=== PATIENT | female | born 1965 | race Caucasian/White ===

== ENCOUNTER 2017-01-06 15:18 | Inpatient (IN) | payer BC ==
[~2017-01-06] VITALS: Ht 167.6 cm; Wt 59.9 kg
--- NOTE | ~2017-01-06 | HP ---
History And Physical [address] [place]. [address] NAME: SABINA DAS : 65 STATUS : ADM IN [facility]#: [id number] AGE: 51 ADM/REG DATE : 01/06/17 MR#: [id number] REPORT SERV DATE: 01/07/17 DICTATED BY: DANIELLE ARANGO DATE: 01/06/17 REPORT STATUS : Draft TRANSCRIBED BY: MODBright DATE: 01/06/17 DATE OF ADMISSION: 01/06/2017 POINT OF ENTRY: [facility] Emergency Department. PRIMARY CARE PHYSICIAN: None at this time. CHIEF COMPLAINT: Fall with right hip pain. HISTORY OF PRESENT ILLNESS: Ms Das is a 51-year-old female with no significant previous medical history other than reported borderline osteoporosis and history of avascular necrosis of the hip, who presents to the emergency department status post mechanical fall with resulting right hip pain. The patient states that she fell a few years ago and broke her left hip and has since had two surgeries, a second one required by avascular necrosis. She also does report a history of some "borderline or early osteoporosis." The patient also states she is very clumsy and has a tendency to fall quite a bit. The patient states she was in her usual state of health today until she suffered mechanical fall at her boyfriend's office. She denies any loss of consciousness. Denies any head trauma. She cannot tell me the reason for her fall. She denies any preceding troubles with fevers, night sweats, chills, chest pain, palpitations, shortness of breath, cough, sputum production, abdominal pain, nausea, vomiting, diarrhea, constipation, melena, hematochezia, hemoptysis, or hematemesis. REVIEW OF SYSTEMS: Comprehensive review of system otherwise negative unless listed in history of present illness. PREVIOUS MEDICAL HISTORY: 1. "Borderline osteoporosis.". 2. Avascular necrosis of the left hip status post hip replacement. SURGICAL HISTORY: 1. Left total hip and then revision for avascular necrosis. 2. Left hand surgery x2. ALLERGIES: AMOXICILLIN CAUSES RASH AND HIVES. HOME MEDICATIONS: 1. Tylenol 1000 mg t.i.d. 2. Os-Akira with vitamin D 500 mg b.i.d. 3. Zyrtec 10 mg daily. History And Physical [address] [place]. [address] NAME: SABINA DAS : 65 STATUS : ADM IN [facility]#: [id number] AGE: 51 ADM/REG DATE : 01/06/17 MR#: [id number] REPORT SERV DATE: 01/07/17 DICTATED BY: DANIELLE ARANGO DATE: 01/06/17 REPORT STATUS : Draft TRANSCRIBED BY: DAVE DATE: 01/06/17 SOCIAL HISTORY: She denies any tobacco, alcohol, or illicits. She works in ER registration at . FAMILY MEDICAL HISTORY: Mother with hypertension and hyperlipidemia. Father with diabetes and coronary artery disease. Siblings with Crohn disease, fibromyalgia, and hypertension. LABS AND IMAGIN. White count is 7.0, hemoglobin is 14.7, hematocrit is 43.7, platelet count is 143, and INR 1.1. 2. Sodium is 142, potassium 3.7, chloride 108, carbon dioxide 26, BUN 15, creatinine 0.68, glucose is 105, calcium is 8.8, protein is 7.3, albumin is 3.9, bilirubin is 0.4, ALT is 55, AST 43, and alkaline phosphatase is 76. 3. Chest x-ray per my review shows no acute cardiopulmonary abnormality. 4. EKG per my review shows normal sinus rhythm. No evidence of any acute ischemia or infarction. 5. Plain films of the hip and pelvis show a right intertrochanteric hip fracture that is mildly displaced. PHYSICAL EXAMINATION: VITAL SIGNS: Temperature is 98.4 degrees Fahrenheit, pulse is 67, respirations 16, saturating 98% on room air, and blood pressure 130/78. GENERAL: The patient is awake and alert, in no acute distress. Resting comfortably in bed. She is a well-developed, well-nourished, female. HEENT: Atraumatic and normocephalic. Moist mucous membranes. Pupils are equal, round, reactive to light and accommodation. Extraocular eye movements intact. No scleral icterus. NECK: No jugular venous distention. No carotid bruits. CARDIAC: Regular rate and rhythm. No murmurs, rubs, or gallops. Normal S1, S2. LUNGS: Clear to auscultation bilaterally. No wheezes, rhonchi, or crackles. ABDOMEN: Soft, nontender, and nondistended with good bowel sounds. No rebound, guarding, or rigidity. EXTREMITIES: Warm and perfused. No cyanosis, clubbing or edema. Right lower extremity is neurovascularly intact distally. SKIN: Warm and dry. PSYCH: Affect appropriate. NEURO: Alert and oriented x3. Cranial nerves 2 through 12 grossly intact. Speech is normal. Gait not assessed. ASSESSMENT AND PLAN: Ms Das is a 51-year-old female suffered a mechanical fall today at work with resulting right intertrochanteric hip fracture. PROBLEM LIST: 1. Right intertrochanteric hip fracture, displaced. 2. Fall. 3. History of osteoporosis. PLAN: 1. Right intertrochanteric hip fracture. We will admit the patient to the hospitalist History And Physical [address] [address] NAME: SABINA DAS : 65 STATUS : ADM IN [facility]#: [id number] AGE: 51 ADM/REG DATE : 01/06/17 MR#: [id number] REPORT SERV DATE: 01/07/17 DICTATED BY: DANIELLE ARANGO DATE: 01/06/17 REPORT STATUS : Draft TRANSCRIBED BY: DAVE DATE: 01/06/17 Service. The patient requests that she be seen by Dr. Curtis, who we will consult. We will place the patient on bed rest. Hdez catheter insertion, complete preoperative evaluation with urinalysis, provide supportive care with IV fluids, antiemetics, as well as pain control. 2. DVT prophylaxis. Heparin subcu. CODE STATUS: The patient wished to be full code. GILBERTO/DAVE Danielle Arango MD / [id number] CC: Bryson Borrero M.D.
--- NOTE | ~2017-01-06 | OP ---
Record Of Operation [facility] [address] [place]. [address] NAME: SABINA DAS : 65 STATUS : ADM IN [facility]#: [id number] AGE: 51 ADM/REG DATE : 01/06/17 MR#: [id number] REPORT SERV DATE: 01/08/17 DICTATED BY: SAUL CURTIS DATE: 01/08/17 REPORT STATUS : Draft TRANSCRIBED BY: MODBright DATE: 01/08/17 DATE OF PROCEDURE: 01/08/2017 PREOPERATIVE DIAGNOSIS: Displaced right femoral neck fracture. POSTOPERATIVE DIAGNOSIS: Displaced right femoral neck fracture. PROCEDURE: Right total hip arthroplasty. AIR DEFENCE OFFICER: Corby Holcomb. ANESTHESIA: Spinal with MAC. ESTIMATED BLOOD LOSS: 300 mL. COMPLICATIONS: None. DRAINS: ConstaVac x1. IMPLANTS: DePuy [place] 48 mm outer diameter cup with a 32 mm inner diameter, +4 lateralized polyethylene liner. The femoral component was size 4 high offset Rough And Ready stem with a 32 mm +5 head and neck segment. INDICATIONS FOR SURGERY: Ms Das is a 51-year-old female, who sustained the above-mentioned fracture in a fall. It was recommended she undergo a total hip arthroplasty. Risks of the procedure as detailed in the orthopedic consult, and operative consent were discussed with her preoperatively. She fully understood and has requested to proceed. DESCRIPTION OF PROCEDURE: The patient was brought to the operating room and after adequate induction of anesthesia, was positioned in the lateral decubitus position using the hip automatic transmission mechanic positioners. All appropriate pressure points were padded and axillary roll was placed. The appropriate operative site was identified and confirmed by both the surgeon and the operating room staff in time out. The hip was then prepped and draped in the usual sterile fashion. A posterior lateral approach to the hip was performed. The skin and subcutaneous tissues were incised sharply using a #10 blade. Electrocautery was used as needed to maintain hemostasis. The fascia amber and fascia over the gluteus karan were divided in line with the incision. The fibers of the gluteus karan were split bluntly. The sciatic nerve was identified and carefully protected throughout the remainder of the case. The Charnley retractor was then placed. The hip was placed in internal rotation and the superior border of the piriformis tendon identified. A full thickness capsulotomy was begun at the superior border of the piriformis tendon and extended anteriorly/inferiorly using an inside/out technique. A portion of the short external rotators were taken down in the capsular exposure. Leg length measurements were then taken. The hip was then dislocated Record Of Operation [facility] [address] [place]. [address] NAME: SABINA DAS : 65 STATUS : ADM IN PAT#: [id number] AGE: 51 ADM/REG DATE : 01/06/17 MR#: [id number] REPORT SERV DATE: 01/08/17 DICTATED BY: SAUL CURTIS DATE: 01/08/17 REPORT STATUS : Draft TRANSCRIBED BY: DAVE DATE: 01/08/17 posteriorly. The femoral neck was then marked and resected at the predetermined level from templating using an oscillating saw. Attention was then turned to the femur and the medial aspect of the greater trochanter was debrided of all cortical bone and soft tissue. The intramedullary canal was opened with a triple reamer. The femur was then sequentially reamed to the appropriate size Rough And Ready stem. The femur was then sequentially broached, once again to the appropriately sized implant. The femoral neck resection was slightly revised using a calcar mill to bring it to the level of the femoral broach. The broach was then removed. Attention was then turned to the acetabulum and the acetabulum was debrided of all labral remnants, osteophytes, and the medial fibrofatty tissue was debrided and the true medial wall of the acetabulum identified. The acetabulum was then sequentially reamed from a size 43 mm hemispherical reamer to a reamer 1 mm smaller than the final component. At this level there was circumferential bleeding of subchondral bony surface. Any subchondral cysts were curetted. The true acetabular cup was then impacted into the acetabulum and a trial liner placed. A trial reduction was then performed. The leg lengths were felt to be equal. The hip was stable at its limited extension and external rotation and to 90 degrees of flexion and 80 degrees of internal rotation. The hip was also stable in the position of sleep. At this point all trial components were removed and the acetabular hole library assistant placed in the acetabular shell. The true acetabular liner was then impacted in the clean acetabular shell. The femoral canal was then copiously irrigated with normal saline and suctioned dry. The true femoral stem was then impacted into the femur to an identical depth and identical anteversion of the trial component. A trial reduction was once again performed to assure that there was no change in leg length or stability. The true femoral head ball was then impacted into the clean femoral taper. The acetabulum was inspected to be sure it was free of all foreign matter and the hip reduced. The wound was copiously irrigated with pulsatile lavage and normal saline. The capsule was repaired using interrupted #1 Vicryl suture in [id number] fashion. The short external rotators were repaired using #5 Ethibond in horizontal mattress fashion. Drain placed deep to the fascia. The fascia was closed with interrupted #5 Ethibond sutures in [id number] fashion. The subcutaneous tissues approximated with interrupted 2-0 Vicryl suture and the skin stapled. Sterile dressing applied. The patient awakened and taken to the recovery room in stable condition. POSTOP PLAN: The patient is to be mobilized weightbearing as tolerated with physical therapy. Posterior hip dislocation precautions. The patient is to be on Coumadin and mechanical deep venous thrombosis prophylaxis. MARIAN/DAVE Record Of [address] [address] NAME: SABINA DAS : 65 STATUS : ADM IN [facility]#: [id number] AGE: 51 ADM/REG DATE : 01/06/17 MR#: [id number] REPORT SERV DATE: 01/08/17 DICTATED BY: SAUL CURTIS DATE: 01/08/17 REPORT STATUS : Draft TRANSCRIBED BY: DAVE DATE: 01/08/17 Saul Curtis M.D. / [id number] CC: Maty Sepulveda M.D.
--- NOTE | ~2017-01-06 | DS ---
Discharge Summary [address] [place]. [address] NAME: SABINA DAS : 65 STATUS : DIS IN PAT#: [id number] AGE: 51 ADM/REG DATE : 01/06/17 MR#: [id number] REPORT SERV DATE: 01/10/17 DICTATED BY: Kristel CARLIN DATE: 01/09/17 REPORT STATUS : Draft TRANSCRIBED BY: MODL DATE: 01/09/17 ADMISSION DATE: 01/06/2017 DISCHARGE DATE: 01/09/2017 The patient was admitted to the Hospitalist Service. CONSULTANTS: Dr. Saul Curtis, orthopedics. DISCHARGE DIAGNOSES: 1. Fall with right hip pain and right femoral neck fracture. 2. Status post right total hip arthroplasty. 3. Osteoporosis. 4. Seasonal allergies. 5. Postop nausea, resolved. PROCEDURES: On 01/08/2017, right total hip arthroplasty. IMAGING AND DIAGNOSTICS: 1. 01/06/2017, a portable chest x-ray, no acute process. Lungs are clear. 2. Hip two-view with a pelvis x-ray on 01/06/2017, showed an acute right femoral neck fracture. LABORATORY STUDIES: 1. Discharge labs on 01/09/2017: CBC revealed a white count of 6.8, hemoglobin 11.4, hematocrit 33.8, platelets 138,000. 2. PT 14.1, INR 1.1. 3. Basic metabolic panel revealed a sodium of 141, potassium 4.0, chloride 105, CO2 of 31, BUN 6, creatinine 0.5, glucose 103, calcium 8.6, and magnesium 2.1. HISTORY OF PRESENT ILLNESS: For complete history, please refer to admission H and P by Dr. Todd Belcher. Briefly, Ms. Das is a pleasant 51-year-old female with no significant past medical history other than reported borderline osteoporosis, who presented to the emergency room after falling at home with resulting right hip pain. In the emergency room, she was noted to have an acute right femoral neck fracture. She was admitted to the Hospitalist Service for further evaluation and treatment. HOSPITAL COURSE: The patient was admitted to the Med/Surg telemetry floor 3[facility], Orthopedic Unit and a consult was placed to Dr. Curtis for the patient's right hip fracture. Dr. Curtis saw her in consultation on 01/07/2017. The patient was placed on bed rest and made n.p.o. after midnight. She was given DVT prophylaxis, IV fluids p.r.n., antiemetics, and p.r.n. pain medications. On 01/07/2017, she was allowed to eat and made n.p.o. after midnight for surgery on 08/01/[address] Curtis. As above, she had the procedure on 01/08/2017. I saw her for the first time post right total hip arthroplasty. She complained of right hip pain mainly with movement and some nausea. Otherwise, no symptoms. Her vital signs were stable. I saw the patient again on the morning of 01/09/2017. She was sitting up in a chair. Her nausea had improved. She was eating solid Discharge Summary [address] [place]. [address] NAME: SABINA DAS : 65 STATUS : DIS IN PAT#: [id number] AGE: 51 ADM/REG DATE : 01/06/17 MR#: [id number] REPORT SERV DATE: 01/10/17 DICTATED BY: Kristel CARLIN DATE: 01/09/17 REPORT STATUS : Draft TRANSCRIBED BY: DAVE DATE: 01/09/17 foods and ambulatory with physical therapy. She had no other complaints. On the afternoon of 01/09/2017, she was able to pass physical therapy and per the Orthopedic Service, she was okay to discharge home. I saw her again late afternoon on 01/09/2017, she was sitting up in a chair, dressed, in no acute distress. She reported that her nausea had resolved. She was eating and drinking without difficulty. She was able to maneuver steps with physical therapist and overall doing well. Therefore, it was felt that she was able to discharge home safely and follow up with outpatient PT starting next week. Her vital signs again were stable. Her pain was controlled with oral medications. Her lungs were clear to auscultation bilaterally. CV, regular rate and rhythm. No murmurs, rubs, gallops. Abdomen is soft, nontender. Active bowel sounds. Peripheral pulses palpable. No edema, clubbing, or cyanosis. Her laboratory studies are as above. Afternoon of 01/09/2017, she was discharged home in stable condition. DISCHARGE INSTRUCTIONS: Include: 1. Diet as tolerated. 2. Activity as tolerated with hip precautions. DISCHARGE MEDICATIONS: Are as follows: 1. Calcium plus vitamin D 500 mg p.o. b.i.d. 2. Zyrtec 10 mg p.o. daily. 3. Multivitamin without minerals [id number]. 4. Coumadin 5 mg p.o. daily. 5. Oxycodone 5 mg one to two tablets p.o. every 4 to 6 p.r.n. pain, prescription provided. Other discharge instructions include she is asked to follow up with her primary care provider in 7 to 10 days and she will have outpatient physical therapy at the [place] office of Dr. Curtis, starting on the 01/14/2017 and she will have PT/INR checked on this date at Dr. Curtis's office. MAI/DAVE Tanya Adorno [facility] Kristel Carlin M.D. / [id number] CC: Fiona Castro M.D.
--- NOTE | ~2017-01-06 | CN ---
Consultation Report [facility] [address] [place]. [address] NAME: SABINA DAS : 65 STATUS : ADM IN PAT#: [id number] AGE: 51 ADM/REG DATE : 01/06/17 MR#: [id number] REPORT SERV DATE: 01/07/17 DICTATED BY: SAUL CURTIS DATE: 01/07/17 REPORT STATUS : Draft TRANSCRIBED BY: MODL DATE: 01/07/17 CONSULTATION DATE OF CONSULTATION: 01/07/2017 CHIEF COMPLAINT: Right hip pain. HISTORY: Ms. Das is a 51-year-old female, who feels that she simply lost her balance and fell yesterday. She landed on her right side and had immediate onset of severe right hip pain. She presented to [facility] Emergency Room, where x-rays showed a displaced right femoral neck fracture. I have now been asked to see her for evaluation and treatment. On questioning, she complains of only right hip pain. She denies any mental status changes or loss of consciousness at the time of the fall. PHYSICAL EXAMINATION: GENERAL: On physical examination, she is awake, alert, and oriented x3. MUSCULOSKELETAL: There is no cervical tenderness. She has no evidence of bony injury to either upper extremity or left lower extremity. With regard to her right lower extremity, it is shortened and externally rotated. She is non-tolerant to any attempted active or passive right hip range of motion due to pain. She has no pain with AP or lateral compression of her pelvis. There is moderate trochanteric tenderness. She has no pain from the mid thigh distally. She has palpable pedal pulses and normal sciatic nerve function on the right. IMAGING: X-rays of her right hip showed displaced transcervical femoral neck fracture. IMPRESSION: Displaced transcervical right femoral neck fracture. PLAN: I have discussed treatment options with Ms. Das with recommendation for right total hip arthroplasty. I reviewed risks of the procedure with her including infection, neurovascular damage, DVT, PE, blood loss requiring transfusion, fracture, dislocation, component loosening, component wear, anesthetic complications, and others. She has a good understanding and has requested to proceed with surgical scheduling. MARIAN/DAVE Saul Curtis M.D. / [id number] Consultation Report [address] [address] NAME: SABINA DAS : 65 STATUS : ADM IN PAT#: [id number] AGE: 51 ADM/REG DATE : 01/06/17 MR#: [id number] REPORT SERV DATE: 01/07/17 DICTATED BY: SAUL CURTIS DATE: 01/07/17 REPORT STATUS : Draft TRANSCRIBED BY: MODL DATE: 01/07/17 CC: Maty Sepulveda M.D.
[2017-01-06 17:26] LABS: BASOPHILS 0.4 %; BASOPHILS ABSOLUTE 0.03 10/3/uL (0.0-0.16); EOSINOPHILS ABSOLUTE 0.07 10/3/uL (0.0-0.53); ER CBC TAT 0 Hrs 11 Mins; HEMATOCRIT 43.7 % (36.0-48.0); HEMOGLOBIN 14.7 g/dL (12.0-16.0); IMMATURE GRANULOCYTES 0.1 %; IMMATURE GRANULOCYTES ABSOLUTE 0.01 10/3/uL (0.0-0.11); LYMPHOCYTES 10.1 %; LYMPHOCYTES ABSOLUTE 0.71 10/3/uL (0.67-4.30); MEAN CORPUS HGB CONC 33.6 g/dL (32.0-36.0); MEAN CORPUSCULAR HEMOGLOB 31.1 pg (26.0-34.0); MEAN CORPUSCULAR VOLUME 92.6 fL (80-100); MONOCYTES 6.6 %; MONOCYTES ABSOLUTE 0.46 10/3/uL (0.21-1.20); NEUTROPHILS 81.8 %; NEUTROPHILS ABSOLUTE 5.74 10/3/uL (2.02-8.40); PLATELET COUNT 143 10/3/uL (150-400); RBC DISTRIBUTION WIDTH 12.4 % (12.0-16.0); RED CELL COUNT 4.72 10/6/uL (4.0-5.6)
[2017-01-06 17:27] LABS: MANUAL DIFF NO %
[2017-01-06 17:32] LABS: INTERNATIONAL NORMAL RATI 1.1 UNITS (-); PARTIAL THROMBO TIME 28.1 SEC (22.5-37.2); PROTIME (NOT ORD) 13.6 SEC (12.0-14.5)
[2017-01-06 17:37] LABS: A/G RATIO 1.1 (0.7-1.9); ALBUMIN 3.9 G/DL (3.5-5.0); ALKALINE PHOSPHATASE 76 U/L (45-117); BUN (BLOOD UREA NITROGEN) 15 MG/DL (6-23); CALCIUM, SERUM 8.8 MG/DL (8.5-10.4); CHLORIDE, SERUM 108 MMOL/L (96-112); CO2 (CARBON DIOXIDE) 26 MMOL/L (24-34); CREATININE 0.68 MG/DL (0.55-1.02); GFR AFRICAN AMERICAN 117 ML/MIN (>=60); GFR NON AFRICAN AMERICAN 101 ML/MIN (>=60); GLOBULIN 3.4 G/DL (2.5-4.1); GLUCOSE, SERUM 100 MG/DL (60-99); POTASSIUM, SERUM 3.7 MMOL/L (3.5-5.3); SGOT(AST) 43 U/L (5-40); SGPT(ALT) 55 U/L (5-65); SODIUM, SERUM 142 MMOL/L (135-148); TOTAL BILIRUBIN 0.4 MG/DL (0-1.2); TOTAL PROTEIN 7.3 G/DL (6.0-8.5)
[2017-01-06] MEDS ORDERED: ZYRTEC ALLGY10 MG PO (18:11)
[2017-01-06] MEDS ORDERED: OS500+D PO (18:11)
[2017-01-06] MEDS ORDERED: ACET500CAP PO (18:12)
[2017-01-06 22:36] LABS: ASCORBIC ACID (UR NOT ORDER) NEG (NEG); BILIRUBIN, URINE NEGATIVE (NEG); KETONE, URINE TRACE MG/DL (NEG); LEUKOCYTE ESTERASE(NOT OR NEG (NEG); WBC (NOT ORDERED) (RFLEX) < 1 (0-5)
[2017-01-07 05:24] LABS: BASOPHILS 0.6 %; BASOPHILS ABSOLUTE 0.03 10/3/uL (0.0-0.16); EOSINOPHILS 0.2 %; EOSINOPHILS ABSOLUTE 0.01 10/3/uL (0.0-0.53); HEMOGLOBIN 12.9 g/dL (12.0-16.0); IMMATURE GRANULOCYTES 0.2 %; IMMATURE GRANULOCYTES ABSOLUTE 0.01 10/3/uL (0.0-0.11); LYMPHOCYTES 14.5 %; LYMPHOCYTES ABSOLUTE 0.74 10/3/uL (0.67-4.30); MEAN CORPUSCULAR HEMOGLOB 30.7 pg (26.0-34.0); MEAN CORPUSCULAR VOLUME 93.1 fL (80-100); MEAN PLATELET VOLUME 10.2 fL (9.2-13.0); MONOCYTES 10.8 %; MONOCYTES ABSOLUTE 0.55 10/3/uL (0.21-1.20); NEUTROPHILS 73.7 %; NEUTROPHILS ABSOLUTE 3.76 10/3/uL (2.02-8.40); PLATELET COUNT 132 10/3/uL (150-400); RBC DISTRIBUTION WIDTH 12.2 % (12.0-16.0); WHITE BLOOD CELLS 5.1 10/3/uL (4.5-10.5)
[2017-01-07 05:31] LABS: HEMATOCRIT 39.1 % (36.0-48.0); MANUAL DIFF NO %
[2017-01-07 05:37] LABS: CALCIUM, SERUM 8.2 MG/DL (8.5-10.4); CHLORIDE, SERUM 108 MMOL/L (96-112); CO2 (CARBON DIOXIDE) 26 MMOL/L (24-34); CREATININE 0.58 MG/DL (0.55-1.02); GFR AFRICAN AMERICAN 124 ML/MIN (>=60); GFR NON AFRICAN AMERICAN 107 ML/MIN (>=60); GLUCOSE, SERUM 108 MG/DL (60-99); POTASSIUM, SERUM 3.9 MMOL/L (3.5-5.3); SODIUM, SERUM 142 MMOL/L (135-148)
[2017-01-07 05:39] LABS: BUN (BLOOD UREA NITROGEN) 11 MG/DL (6-23)
[2017-01-08 05:24] LABS: BASOPHILS 0.8 %; BASOPHILS ABSOLUTE 0.03 10/3/uL (0.0-0.16); EOSINOPHILS 4.8 %; EOSINOPHILS ABSOLUTE 0.19 10/3/uL (0.0-0.53); HEMATOCRIT 40.8 % (36.0-48.0); HEMOGLOBIN 13.6 g/dL (12.0-16.0); IMMATURE GRANULOCYTES 0.3 %; IMMATURE GRANULOCYTES ABSOLUTE 0.01 10/3/uL (0.0-0.11); LYMPHOCYTES 26.9 %; LYMPHOCYTES ABSOLUTE 1.07 10/3/uL (0.67-4.30); MEAN CORPUS HGB CONC 33.3 g/dL (32.0-36.0); MEAN CORPUSCULAR HEMOGLOB 31.5 pg (26.0-34.0); MEAN CORPUSCULAR VOLUME 94.4 fL (80-100); MONOCYTES 10.6 %; MONOCYTES ABSOLUTE 0.42 10/3/uL (0.21-1.20); NEUTROPHILS 56.6 %; NEUTROPHILS ABSOLUTE 2.26 10/3/uL (2.02-8.40); PLATELET COUNT 127 10/3/uL (150-400); RBC DISTRIBUTION WIDTH 12.4 % (12.0-16.0); RED CELL COUNT 4.32 10/6/uL (4.0-5.6)
[2017-01-08 05:25] LABS: MANUAL DIFF NO %
[2017-01-08 05:28] LABS: PROTIME (NOT ORD) 13.4 SEC (12.0-14.5)
[2017-01-08 05:29] LABS: PARTIAL THROMBO TIME 27.7 SEC (22.5-37.2)
[2017-01-08 05:35] LABS: ALBUMIN 3.2 G/DL (3.5-5.0); ALKALINE PHOSPHATASE 65 U/L (45-117); CALCIUM, SERUM 8.8 MG/DL (8.5-10.4); CHLORIDE, SERUM 108 MMOL/L (96-112); CREATININE 0.63 MG/DL (0.55-1.02); GFR AFRICAN AMERICAN 120 ML/MIN (>=60); GFR NON AFRICAN AMERICAN 104 ML/MIN (>=60); GLOBULIN 3.3 G/DL (2.5-4.1); GLUCOSE, SERUM 91 MG/DL (60-99); POTASSIUM, SERUM 3.8 MMOL/L (3.5-5.3); SGOT(AST) 109 U/L (5-40); SGPT(ALT) 116 U/L (5-65); SODIUM, SERUM 143 MMOL/L (135-148); TOTAL BILIRUBIN 0.5 MG/DL (0-1.2); TOTAL PROTEIN 6.5 G/DL (6.0-8.5)
[2017-01-08 05:36] LABS: BUN (BLOOD UREA NITROGEN) 7 MG/DL (6-23); CO2 (CARBON DIOXIDE) 31 MMOL/L (24-34)
[2017-01-08 05:55] LABS: ASCORBIC ACID (UR NOT ORDER) 40 (NEG); BILIRUBIN, URINE NEGATIVE (NEG); KETONE, URINE NEGATIVE (NEG); LEUKOCYTE ESTERASE(NOT OR NEG (NEG); WBC (NOT ORDERED) (RFLEX) 4 (0-5)
[2017-01-09 05:14] LABS: BASOPHILS 0.1 %; BASOPHILS ABSOLUTE 0.01 10/3/uL (0.0-0.16); EOSINOPHILS 0 %; HEMOGLOBIN 11.4 g/dL (12.0-16.0); IMMATURE GRANULOCYTES 0.1 %; IMMATURE GRANULOCYTES ABSOLUTE 0.01 10/3/uL (0.0-0.11); LYMPHOCYTES 10.4 %; LYMPHOCYTES ABSOLUTE 0.71 10/3/uL (0.67-4.30); MEAN CORPUS HGB CONC 33.7 g/dL (32.0-36.0); MEAN CORPUSCULAR HEMOGLOB 31.2 pg (26.0-34.0); MEAN CORPUSCULAR VOLUME 92.6 fL (80-100); MEAN PLATELET VOLUME 10.1 fL (9.2-13.0); MONOCYTES 10.2 %; NEUTROPHILS 79.2 %; NEUTROPHILS ABSOLUTE 5.41 10/3/uL (2.02-8.40); PLATELET COUNT 138 10/3/uL (150-400); RBC DISTRIBUTION WIDTH 12.1 % (12.0-16.0); RED CELL COUNT 3.65 10/6/uL (4.0-5.6)
[2017-01-09 05:17] LABS: HEMATOCRIT 33.8 % (36.0-48.0); MANUAL DIFF NO %; WHITE BLOOD CELLS 6.8 10/3/uL (4.5-10.5)
[2017-01-09 05:21] LABS: INTERNATIONAL NORMAL RATI 1.1 UNITS (-); PROTIME (NOT ORD) 14.1 SEC (12.0-14.5)
[2017-01-09 05:24] LABS: BUN (BLOOD UREA NITROGEN) 6 MG/DL (6-23); CALCIUM, SERUM 8.6 MG/DL (8.5-10.4); CHLORIDE, SERUM 105 MMOL/L (96-112); CO2 (CARBON DIOXIDE) 31 MMOL/L (24-34); GFR AFRICAN AMERICAN 130 ML/MIN (>=60); GFR NON AFRICAN AMERICAN 112 ML/MIN (>=60); GLUCOSE, SERUM 103 MG/DL (60-99); SODIUM, SERUM 141 MMOL/L (135-148)
[2017-01-09] MEDS ORDERED: OXYCOD PO (16:59)
[2017-01-09] MEDS ORDERED: C5 PO (16:59)
== END 2017-01-09 18:27 | disposition home or self-care (01) | DRG 470 ==
LOC: ENRESERV → ENRESERVDT → ENRESERVTM → CANRESERV → ER 15:18 → 3SO 20:21 → 2SO 20:21 → 3SO 01-08 11:43
PROVIDERS: Emergency Medicine; Internal Medicine; Specialist
PROC: 0SR90JZ Replacement of Right Hip Joint with Synthetic Substitute, Open Approach (ICD-10-PCS; principal; 2017-01-08 06:30)
DX: S72.141A Displaced intertrochanteric fracture of right femur, initial encounter for closed fracture (principal); G90.512 Complex regional pain syndrome I of left upper limb; M81.0 Age-related osteoporosis without current pathological fracture; W18.30XA Fall on same level, unspecified, initial encounter; Z88.1 Allergy status to other antibiotic agents; Z82.49 Family history of ischemic heart disease and other diseases of the circulatory system; M19.90 Unspecified osteoarthritis, unspecified site; R11.0 Nausea; J30.2 Other seasonal allergic rhinitis
CPT/HCPCS: 36415; 71010; 72170; 73502-RT; 80048; 80053; 81001; 83735; 84703; 85025; 85610; 85730; 86850; 86900; 86901; 86920; 87641; 88305; 88311; 93005; 96374; 97110-GP; 97116-GP; 97161-GP; 97166-GO; 99285; A9270-GY; C1776; J0330; J0690; J1170; J2250; J2405; J2710; J3010; J3370